=== PATIENT | female | born 1995 | race Hispanic/Latino ===

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

== ENCOUNTER 2017-03-28 16:26 | Emergency (ER) | payer OTHER ==
[~2017-03-28] VITALS: Ht 160 cm; Wt 98.6 kg
[2017-03-28 17:12] VITALS: PULSE 96; RESP 18; O2SAT 96
[2017-03-28 18:03] LABS: BASOPHILS % (AUTO) 0.2 % (0-3); EOSINOPHILS % (AUTO) 0.3 % (0-5); MONOCYTES % (AUTO) 5.2 % (4-12); Mean Corpuscular Hemoglobin 29.1 pg (27.0-35.0); NEUTROPHILS % (AUTO) 60.3 % (40-74); Platelet Count 214 bil/L (150-400)
--- NOTE | 2017-03-28 19:07 | DRSVH ---
PROCEDURE: X-RAY CHEST ONE VIEW, PORTABLE ([id number]) INDICATIONS: shortness of breath TECHNIQUE: One view of the chest was acquired. COMPARISON: None. FINDINGS: Surgical changes and devices: None. Lungs and pleura: No pleural effusions or pneumothorax. Lungs are clear. Mediastinum: Mediastinal contours appear normal. Heart size is normal. Bones and chest wall: No suspicious bony lesions. Overlying soft tissues appear unremarkable. IMPRESSION: No acute pulmonary process. Dictated by: Halle Snyder M.D. on 03/28/2017 at 19:03 Approved by: Halle Snyder M.D. on 03/28/2017 at 19:06
[2017-03-28] MEDS ORDERED: Albuterol-Ipratropium 3 mL Inhalation Solution ONE (20:01)
[2017-03-28 20:05] VITALS: PULSE 96; RESP 17; O2SAT 98
--- NOTE | 2017-03-28 20:09 | ED.REPORT ---
HPI-Dyspnea / Wheezing Date of Service Mar 28, 2017 ED Provider: Rodríguez Hawley MD History of Present Illness: OCC A 22 year old female with a history of asthma and recent pneumonia presents to the ED complaining of dyspnea that began this evening. She has used her albuterol inhaler 7 times today with no relief. The patient has been seen in the ED multiple times for exacerbation that required admission and presents today with identical symptoms. She repots receiving IV infusions for her asthma once per month (possibly Xolair). Last dose 03/18. She endorses chills, a non- productive cough and one episode of hemoptysis. Patient denies any recent fevers , nausea or vomiting. Medication list includes 2.5 mg prednisone (recently decreased from 80) Activair and inhaler. Nursing Notes Stated Complaint: TROUBLE BREATHING, DIZZY Chief Complaint: Respiratory Complaints Nursing Notes Reviewed: Yes (WeGame, Railpods not reconciled) Allergies: Coded Allergies: No Known Allergies (Verified Allergy, Unknown, 03/28/17) Scheduled Fluticasone/Salmeterol (Advair 500-50 Diskus) 1 Each Disk.w.dev 1 PUFF IH BID Montelukast (Montelukast) 10 Mg Tablet 10 MG PO MORNING Prednisone (PredniSONE) 20 Mg Tablet 20 MG PO DAILY Prednisone (PredniSONE) 20 Mg Tablet 40 MG PO DAILY Prednisone (PredniSONE) 20 Mg Tablet 20 MG PO DAILY Scheduled PRN Albuterol Sulfate (Proventil HFA Inhaler) 6.7 Gm Hfa.aer.ad 2 PUFF INH Q4 PRN PRN For Wheezing Albuterol Sulfate (Ventolin HFA Inhaler) 200 Puff/18 Gm Inhaler 1 PUFF INH Q4 PRN PRN For Wheezing General Time Seen by MD: 20:02 Chief Complaint Shortness of breath Hx Obtained From: Patient Arrived By: Walk-in Sudden in Onset?: No Onset Occurred: 5 - 8 hours ago Symptom Duration: Since onset Location: : None Associated with: Reports: Cough, Denies: Fever, Nausea, Vomiting Pertinent Negative: Pt denies other symptoms Recent Healthcare: No recent hospitalization, Recent doctor visit Similar Sx Previous: Yes Past Medical History Past Medical History Notes: PCP: Dr. 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 GI: Denies: Nausea, Vomiting Physical Exam Initial Vital Signs Vital Signs (First) Date Time Temp Pulse Resp B/P Pulse Ox O2 Delivery O2 Flow Rate FiO2 03/28/17 17:12 36.9 96 18 96 Room Air 03/28/17 23:25 136/72 Initial VS: Reviewed, Vital signs normal Head / Eyes: Atraumatic, Normocephalic, PERRL Extremities: Vascular intact, Neuro intact, No swelling, No tenderness Skin: Warm, Dry, No cyanosis Neurologic: Alert, Oriented, Nonfocal Psychiatric: Mood/affect normal, Behavior normal, Normal thought content General/Constitutional: Awake, Alert, No acute distress Neck: Atraumatic, Supple Respiratory / Chest: Atraumatic, No respiratory distress Wheezing / Retractions: Positive: Wheezing mild Cardiovascular: Heart rate NL, Regular rhythm, Heart sounds NL Abdomen: Atraumatic, Soft Interpretation & Diagnostics Lab Results Interpretation Result Diagram: 03/28/17 1753 03/28/17 1753 Test 03/28/17 17:53 03/28/17 19:27 White Blood Count 11.3th/mm3 (3.8-10.1) Red Blood Count 5.05mil/mm3 (3.90-5.20) Hemoglobin 14.7g/dL (12.0-15.6) Hematocrit 41.4% (35.0-46.0) Mean Corpuscular Volume 82.0fL (81-100) Mean Corpuscular Hemoglobin 29.1pg (27.0-35.0) Mean Corpuscular Hemoglobin Concent 35.5% (32.0-37.0) Red Cell Distribution Width 12.7% (12.3-15.4) Platelet Count 214bil/L (150-400) Neutrophils (%) (Auto) 60.3% (40-74) Lymphocytes (%) (Auto) 33.7% (14-46) Monocytes (%) (Auto) 5.2% (4-12) Eosinophils (%) (Auto) 0.3% (0-5) Basophils (%) (Auto) 0.2% (0-3) Sodium Level 137mEq/L (134-144) Potassium Level 3.9mEq/L (3.5-5.2) Chloride Level 100mEq/L (97-108) Carbon Dioxide Level 22mmol/L (18-29) Blood Urea Nitrogen 13mg/dL (6-20) Creatinine 0.70mg/dL (0.57-1.00) Estimat Glomerular Filtration Rate 153mL/min (>59) Glucose Level 95mg/dL (60-99) Calcium Level 9.7mg/dL (8.5-10.1) Total Bilirubin 0.4mg/dL (0.0-1.2) Aspartate Amino Transf (AST/SGOT) 14U/L (0-50) Alanine Aminotransferase (ALT/SGPT) 19U/L (0-32) Alkaline Phosphatase 86U/L (25-150) Total Protein 7.6g/dL (6.4-8.4) Albumin 4.4g/dL (3.4-5.0) Hold Adan Top Tube Received (Received) Hold Urine Received (Received) Lab Results Interpretation: CBC nonspecific leukocytosis CMP normal X-Ray Chest Interpretation Chest Xray Interpretation: IMPRESSION: No acute pulmonary process. Dictated by: Halle Snyder M.D. on 03/28/2017 at 19:03 Interpretation / Wet Read by: Interpret - Radiologist Re-Eval/Medical Decision Med Decision/Clinical Course This is a pleasant 22-year-old female with a history of moderately severe asthma and prior admission, but no prior intubations, was followed by an asthma specialist down at [facility] reports receiving his part of her sick treatment monthly infusions of an unknown suppressive medication. She is also on daily prednisone, currently at 2.5 mg a day. She reports over the past week she has had an exacerbation of asthma, and she has been using her nebulizers at home, symptoms simply recur a few hours after the nebulizer-psoas coming to the ED. Moderately distressed bronchospastic, but did respond markedly to initial presentation milligrams of albuterol. However as she indicated discontinue albuterol, symptoms did recur or further treatment. She also was started on oral dexamethasone at this point he should like to continue her current K platelets Cipro supplement that. Chest x-ray is negative, blood work was negative. Patient received serial courses of albuterol with continued improvement. She did have a couple spells where she would improve, and then have a recurrence of bronchospasm symptoms. Definitive triggers identified. No pneumonia or other overt pathology is evident clinically or radiographically. Ultimately the patient improved enough that she wished to go home, I think this is reasonable. She will she has plenty of her medications at home, she received dexamethasone to continue tomorrow. She will follow-up with her asthma provider. She is comfortable returning if symptoms recur or worsen. And is discharged in good condition. Source of Hx: Old records Re-Evaluation/Progress #1: Time of Eval: 20:16 Patient Status: Condition improved Re-Evaluation/Progress Note: Breathing has improved upon recheck. Re-Evaluation/Progress #2: Time of Eval: 21:32 )( Re-Eval Resp / Chest: Moderate wheezing, Moderate resp distress Re-Evaluation/Progress Note: Wheezing increased from previous recheck. Patient is requesting another breathing treatment at this time. Re-Evaluation/Progress #3: Time of Eval: 22:55 Patient Status: Condition improved Re-Evaluation/Progress Note: Pt feels much better. Discussed plan for discharge. Pt understands and agrees with plan. She reports that she has plenty of Albuterol at home. Differential Diagnosis: Positive: Asthma, Negative: Acute coronary syndrome, Airway obstruction, Carbon monoxide poisoning, Congestive heart failure, Hypertensive emergency, PSVT, Pneumonia, Pneumothorax, Pulmonary embolism, Respiratory failure Counseled Regarding: Diagnosis, Lab results, Need for follow-up, When/why to return to ED Discharge & Departure Impression: Primary Impression: Acute asthma exacerbation Asthma severity: mild persistent Qualified Code: J45.31 - Mild persistent asthma with (acute) exacerbation Disposition: Home Discharge Condition All VS Reviewed: Yes Condition: Improved Patient Instructions: Asthma (ED) Additional Instructions: 1. Continue your current medications. 2. Take the remaining dose of dexamethasone (10mg) tomorrow - simply empty syringe into some juice or soda and drink. 3. Continue your regular prednisone. 4. Return again if new or worsening symptoms. 5. Follow up with your asthma specialist as planned. Referrals: Mirlande Castaneda PA-C (PCP) Scribe Attestation Portions of this note were transcribed by Idalia Levine. I, Dr. Hawley, personally performed the history, physical exam and medical decision-making; I reviewed and confirmed the accuracy of the information in the transcribed note. Signed by: Idalia Levine, 03/28/17. copies to: Mirlande Castaneda PA-C, Matthew F MD Mar 28, 2017 20:08 IDALIA LEVINE Mar 28, 2017 20:20 JOON IBANEZ Mar 28, 2017 22:56
[2017-03-28] MEDS ORDERED: Dexamethasone 20 mg/2 mL Oral Solution PO ONE (20:20)
[2017-03-28] MEDS ORDERED: Albuterol 2.5 mg/3 mL Inhalation Solution NEB ONE (21:30)
[2017-03-28 21:35] VITALS: PULSE 94; RESP 18; O2SAT 97
[2017-03-28 23:25] VITALS: BP 136/72; PULSE 100; RESP 18; O2SAT 97
== END 2017-03-28 23:26 | disposition home or self-care (01) ==
LOC: SED 16:26
DX: J45.31 Mild persistent asthma with (acute) exacerbation (principal); K21.9 Gastro-esophageal reflux disease without esophagitis
CPT/HCPCS: 36415; 71010; 80053; 85025; 94644; 99284; J7613; J7620

== ENCOUNTER 2017-04-13 08:51 | Emergency (ER) | payer OTHER ==
[~2017-04-13] VITALS: Ht 160 cm; Wt 97.7 kg
[2017-04-13 08:57] VITALS: BP 146/85; PULSE 91; RESP 20; O2SAT 97
--- NOTE | 2017-04-13 09:03 | ED.REPORT ---
HPI-Dyspnea / Wheezing Date of Service Apr 13, 2017 ED Provider: Dr. Pride The pt is a 22 y/o female with a hx of asthma and recent pneumonia who presents to the ED complaining of worsening shortness of breath, onset 5 days ago. Associated sx include chest tightness, back pain, sore throat, some nasal congestion, and subjective fever. The pt was seen at the ED 2 weeks ago for the same complaint. At that time, her chest X-ray and blood work was negative. Her condition had improved with serial courses of albuterol. The pt is being followed by Dr. Rodríguez Jaffe at . Nursing Notes Stated Complaint: TROUBLE BREATHING Chief Complaint: Respiratory Distress Nursing Notes Reviewed: Yes Allergies: Coded Allergies: No Known Allergies (Verified Allergy, Unknown, 03/28/17) Scheduled Fluticasone/Salmeterol (Advair 500-50 Diskus) 1 Each Disk.w.dev 1 PUFF IH BID Montelukast (Montelukast) 10 Mg Tablet 10 MG PO MORNING Prednisone (PredniSONE) 20 Mg Tablet 20 MG PO DAILY Prednisone (PredniSONE) 20 Mg Tablet 40 MG PO DAILY Prednisone (PredniSONE) 20 Mg Tablet 20 MG PO DAILY Scheduled PRN Albuterol Sulfate (Proventil HFA Inhaler) 6.7 Gm Hfa.aer.ad 2 PUFF INH Q4 PRN PRN For Wheezing Albuterol Sulfate (Ventolin HFA Inhaler) 200 Puff/18 Gm Inhaler 1 PUFF INH Q4 PRN PRN For Wheezing General Time Seen by MD: 09:09 Chief Complaint Shortness of breath Hx Obtained From: Patient Arrived By: Walk-in Sudden in Onset?: No Onset Occurred: 5 days ago Symptom Duration: Since onset Severity: Current: No pain currently Severity: Maximum: No pain Recent Healthcare: Recent doctor visit Similar Sx Previous: Yes Past Medical History Past Medical History Notes: PCP: Dr. Wright Seen in ED 11/18/15 for Asthma, Xray Negative at that visit, ~9-10 ED visits for Asthma over past ~[address] Chest negative 09/201508/12/2016 chronic uncontrolled asthma Past Medical History Allergies Asthma previously requiring admission Pneumonia Reports: Asthma, GERD Past Surgical History Reports: Appendectomy Family History Noncontributory Smoking History Never Smoker Social History No tobacco exposure at home Alcohol Use: Denies alcohol use Drug Use: Denies drug use Other Social History: Good social support, Lives with parents, Local resident Occupation goes to college 08/12/2016 Ambulatory Status Independent Review of Systems Reports: chest tightness Constitutional: Reports: Fever (subjective) Ears / Nose / Throat: Reports: Nasal congestion, Sore throat Respiratory: Reports: Shortness of breath Musculoskeletal: Reports: Back pain Complete sys rev & neg: except as marked. Physical Exam Initial Vital Signs Vital Signs (First) Date Time Temp Pulse Resp B/P Pulse Ox O2 Delivery O2 Flow Rate FiO2 04/13/17 08:57 36.6 91 20 146/85 97 Room Air Initial VS: Reviewed Head / Eyes: Atraumatic, Normocephalic Abdomen / GI: Soft, Non-tender, No guarding, No rebound, No distention Extremities: Vascular intact, Neuro intact, No swelling, No tenderness Skin: Warm, Dry, No cyanosis Neurologic: Alert, Oriented, Nonfocal General/Constitutional: Awake, Alert, No acute distress, Well appearing, Well hydrated, Well nourished, Cooperative Neck: Atraumatic, Supple, Full range of motion Respiratory / Chest: Atraumatic, Breath sounds NL, Breath sounds = bilat, No respiratory distress, No rales, No rhonchi, No wheezing, No retractions Cardiovascular: Heart rate NL, Regular rhythm, Heart sounds NL, No gallop, No murmurs, No rubs Re-Eval/Medical Decision Source of Hx: Old records Re-Evaluation/Progress : Time of Eval: 14:21 Re-Evaluation/Progress Note: Rechecked pt. Discussed diagnosis and plan to discharge. Pt understands and agrees with the plan. F/U instruction and RTER warning given. All questions addressed. Consultation : Call Returned at: 14:17 Animal Nutrition Teacher: Will see in office, Agrees with eval, Agrees with plan Note: Talked to Dr. Addy Rosales who is cushion padder for Dr. Jaffe. She recommends either not doing anything or taking 40 mg of prednisone if sx don't improve and then going immediately back to the 2.5 mg dose. She recommends follow up. Counseled Regarding: Diagnosis, Need for follow-up, When/why to return to ED Discharge & Departure Impression: Primary Impression: Acute asthma exacerbation Asthma severity: unspecified severity Qualified Code: J45.901 - Unspecified asthma with (acute) exacerbation Disposition: Home Discharge Condition All VS Reviewed: Yes Condition: Stable Patient Instructions: Asthma (ED) Additional Instructions: After speaking with Dr. Rosales who is taking call for Dr. Jaffe, we recommend that you either do nothing different with your medications and see if over the next few days your symptoms will improve or to take 40 mg of prednisone once daily for 3 or 4 days and then go immediately back to the 2.5 mg you were on previously. Of course if you are feeling worse, please return to the emergency department or call Dr. Jaffe. Follow-up with Dr. Jaffe next week. Referrals: Mirlande Castaneda PA-C (PCP) Scribe Attestation Portions of this note were transcribed by Grazyna Andrew. I,, personally performed the history,physical exam and medical decision-making;I reviewed and confirmed the accuracy of the information in the transcribed note. Signed by Lincoln Ibarra. 04/13/17 copies to: Mirlande Castaneda PA-C, Kirk H MD Apr 13, 2017 09:03 Grazyna Andrew Apr 13, 2017 09:10
[2017-04-13 11:10] VITALS: BP 106/78; PULSE 77; RESP 22; O2SAT 97
[2017-04-13 14:35] VITALS: BP 106/78; PULSE 77; RESP 22; O2SAT 97
== END 2017-04-13 14:29 | disposition home or self-care (01) ==
LOC: SED 08:51
DX: J45.901 Unspecified asthma with (acute) exacerbation (principal); M54.9 Dorsalgia, unspecified; R50.9 Fever, unspecified; K21.9 Gastro-esophageal reflux disease without esophagitis; Z87.01 Personal history of pneumonia (recurrent); Z90.89 Acquired absence of other organs

== ENCOUNTER 2017-04-14 07:16 | Observation (INO) | payer OTHER ==
[~2017-04-14] VITALS: Ht 160 cm; Wt 97.7 kg
[2017-04-14] VITALS (20 sets, daily range): BP systolic 121–132; BP diastolic 68–79; PULSE 109–155; RESP 17–30; O2SAT 90–98
--- NOTE | 2017-04-14 07:29 | ED.REPORT ---
HPI-Dyspnea / Wheezing Date of Service Apr 14, 2017 ED Provider: Anna Pandya Patient is a 22 year old female with a hx of asthma who presents to the ED complaining of gradually worsening SOB onset yesterday. Pt complains of sore throat and rhinnorhea for the last month. Associated symptoms include chills, pleuritic pain, and back pain. She describes her pain as tightness with sharp twinges with inspiration. Pt denies leg swelling, fevers, or any other symptoms. She was seen yesterday when her symptoms are less severe. Her doctor at said she may be given a bolus dose of steroids as she is already on a maintenance dose of Prednisone. She did increase her prednisone dose this morning. Pt also reports a resolving pneumonia but is no longer on abx. Her last home Nebulizer was around 0430 or 0500 this morning. Nursing Notes Stated Complaint: DIFFICULTY BREATHING Chief Complaint: Respiratory Distress Nursing Notes Reviewed: Yes Allergies: Coded Allergies: No Known Allergies (Verified Allergy, Unknown, 03/28/17) Scheduled Fluticasone/Salmeterol (Advair 500-50 Diskus) 1 Each Disk.w.dev 1 PUFF IH BID Montelukast (Montelukast) 10 Mg Tablet 10 MG PO MORNING Prednisone (PredniSONE) 20 Mg Tablet 20 MG PO DAILY Prednisone (PredniSONE) 20 Mg Tablet 40 MG PO DAILY Prednisone (PredniSONE) 20 Mg Tablet 20 MG PO DAILY Scheduled PRN Albuterol Sulfate (Proventil HFA Inhaler) 6.7 Gm Hfa.aer.ad 2 PUFF INH Q4 PRN PRN For Wheezing Albuterol Sulfate (Ventolin HFA Inhaler) 200 Puff/18 Gm Inhaler 1 PUFF INH Q4 PRN PRN For Wheezing General Time Seen by MD: 07:29 Chief Complaint Shortness of breath Hx Obtained From: Patient Arrived By: Walk-in Sudden in Onset?: No Onset Occurred: Yesterday Symptom Duration: Since onset Location: : Back: Substernal Quality: Sharp (and tight ) Exacerbated by: Deep breath Context Asthma History: Asthma diagnosed Recent Healthcare: Recent doctor visit Similar Sx Previous: Yes Past Medical History Past Medical History Notes: PCP: Dr. Wright 08/12/2016 chronic uncontrolled asthma Past Medical History Allergies Asthma previously requiring admission Pneumonia Reports: GERD Past Surgical History Reports: Appendectomy Family History Noncontributory Smoking History Never Smoker Social History No tobacco exposure at home Alcohol Use: Denies alcohol use Drug Use: Denies drug use Other Social History: Good social support, Lives with parents, Local resident Occupation goes to college 08/12/2016 Ambulatory Status Independent Review of Systems Constitutional: Reports: Chills, Denies: Fever Ears / Nose / Throat: Reports: Sore throat Respiratory: Reports: Pleuritic pain, Shortness of breath Cardiovascular: Denies: Edema Musculoskeletal: Reports: Back pain, Denies: Extremity swelling Allergy / Immune: Reports: Rhinorrhea Complete sys rev & neg: except as marked. Physical Exam Initial Vital Signs Vital Signs (First) Date Time Temp Pulse Resp B/P Pulse Ox O2 Delivery O2 Flow Rate FiO2 04/14/17 07:17 36.6 145 20 130/72 93 Room Air 04/14/17 07:56 8 Initial VS: Reviewed, Vital signs abnormal Head / Eyes: Atraumatic, Normocephalic Abdomen / GI: Soft, Non-tender Skin: Warm, Dry Neurologic: Alert, Oriented, Nonfocal Psychiatric: Mood/affect normal, Behavior normal, Normal thought content General/Constitutional: Awake, Alert Neck: Atraumatic Respiratory / Chest: Atraumatic Expiratory rhonchi and wheezes Speaking in full sentences No obvious respiratory distress Cardiovascular: Regular rhythm, Heart sounds NL Heart Rate / Rhythm: Positive: Tachycardia Lower Extremity / Pelvis / MS: No edema Interpretation & Diagnostics Lab Results Interpretation Result Diagram: 04/14/17 0736 04/14/17 0736 Test 04/14/17 07:36 White Blood Count 12.4th/mm3 (3.8-10.1) Red Blood Count 5.26mil/mm3 (3.90-5.20) Hemoglobin 15.1g/dL (12.0-15.6) Hematocrit 43.0% (35.0-46.0) Mean Corpuscular Volume 81.7fL (81-100) Mean Corpuscular Hemoglobin 28.7pg (27.0-35.0) Mean Corpuscular Hemoglobin Concent 35.1% (32.0-37.0) Red Cell Distribution Width 12.7% (12.3-15.4) Platelet Count 193bil/L (150-400) Neutrophils (%) (Auto) 84.3% (40-74) Lymphocytes (%) (Auto) 10.1% (14-46) Monocytes (%) (Auto) 5.2% (4-12) Eosinophils (%) (Auto) 0.1% (0-5) Basophils (%) (Auto) 0.1% (0-3) Sodium Level 137mEq/L (134-144) Potassium Level 3.8mEq/L (3.5-5.2) Chloride Level 103mEq/L (97-108) Carbon Dioxide Level 19mmol/L (18-29) Blood Urea Nitrogen 10mg/dL (6-20) Creatinine 0.57mg/dL (0.57-1.00) Estimat Glomerular Filtration Rate 194mL/min (>59) Glucose Level 113mg/dL (60-99) Calcium Level 9.5mg/dL (8.5-10.1) Magnesium Level 1.9mg/dL (1.6-2.6) Hold Adan Top Tube Received (Received) X-Ray Chest Interpretation Chest Xray Interpretation: IMPRESSION: No acute disease Dictated by: Reji Ng M.D. on 04/14/2017 at 8:49 Approved by: Reji Ng M.D. on 04/14/2017 at 8:50 View: Portable, 1 view Interpretation / Wet Read by: Interpret - Radiologist Re-Eval/Medical Decision Med Decision/Clinical Course The patient presents with breathing difficulty although she is talking in full sentences. While sleeping her sats dropped to 90% and she is persistently tachycardic. Initially I thought she could be dehydrated as well as having effects from her albuterol. She was watched for 4 hours and did not have any change in her heart rate. The patient was feeling minimally improved. Given her persistent tachycardia and leukocytosis she was admitted for ongoing treatment. A partial list of differential diagnoses considered were pneumonia, dehydration , upper respiratory infection, and asthma exacerbation. Re-Evaluation/Progress #1: Time of Eval: 09:06 Re-Evaluation/Progress Note: Rechecked pt who reports she is still feeling about the same. Pt appears to have decreased work with breathing. She also complains of a sore throat. Re-Evaluation/Progress #2: Time of Eval: 09:46 Re-Evaluation/Progress Note: Rechecked pt. Her HR is now lower. Consultation : Referral / Consult Name: Cam Perkins MD Consulted With: Hospitalist Call Returned at: 12:15 Optical Instrument Inspector: Will see patient, Agrees with eval, Agrees with plan, Accepts admit Note: Discussed pt's case. Accepts admit. Counseled Regarding: Diagnosis, Lab results, Need for admission Discharge & Departure Impression: Primary Impression: Asthma exacerbation Additional Impression: SIRS (systemic inflammatory response syndrome) Disposition: ADMITTED TO HOSPITAL Discharge Condition All VS Reviewed: Yes Condition: Stable Referrals: Mirlande Castaneda PA-C (PCP) Lynnetteibjonathan Attestation Portions of this note were transcribed by Liyah Ly. I, Dr. Pandya personally performed the history, physical exam and medical decision-making; I reviewed and confirmed the accuracy of the information in the transcribed note. Signed by: Lincoln Meza, 04/14/17 copies to: Mirlande Castaneda PA-C, Jena M MD Apr 14, 2017 07:29 LIYAH LY Apr 14, 2017 07:39
[2017-04-14] MEDS ORDERED: Magnesium Sulf 2 Gm/50mL Water 2 GM in IV Premix 1 EACH IV ONE (07:30)
[2017-04-14] MEDS ORDERED: Albuterol-Ipratropium 3 mL Inhalation Solution NEB ONE (07:30)
[2017-04-14] MEDS ORDERED: Budesonide 0.5 mg/2 mL Inhalation Solution NEB ONE (07:30)
[2017-04-14] MEDS ORDERED: 0.9% Sodium Chloride 1,000 ML IV ONE ×2 (07:30→09:00)
[2017-04-14] MEDS ORDERED: MethylprednisoLONE Sodium Succinate 62.5 mg/mL 2 mL Inj IVPUSH ONE (07:30)
[2017-04-14] MEDS ORDERED: Albuterol 2.5 mg/3 mL Inhalation Solution NEB ONE ×3 (07:30→12:15)
[2017-04-14 07:54] LABS: BASOPHILS % (AUTO) 0.1 % (0-3); EOSINOPHILS % (AUTO) 0.1 % (0-5); MONOCYTES % (AUTO) 5.2 % (4-12); Mean Corpuscular Hemoglobin 28.7 pg (27.0-35.0); Mean Corpuscular Volume 81.7 fL (81-100); NEUTROPHILS % (AUTO) 84.3 % (40-74); Platelet Count 193 bil/L (150-400)
[2017-04-14 08:27] LABS: Magnesium 1.9 mg/dL (1.6-2.6)
--- NOTE | 2017-04-14 08:52 | DRSVH ---
PROCEDURE: X-RAY CHEST ONE VIEW, PORTABLE ([id number]) INDICATIONS: short of breath TECHNIQUE: One view of the chest was acquired. COMPARISON: [facility], CR, XR CHEST 1VW (PORTABLE), 03/28/2017, 18:37. FINDINGS: Surgical changes and devices: None. Lungs and pleura: No pleural effusions or pneumothorax. Lungs are clear. Decreased lung volumes. Mediastinum: Mediastinal contours appear normal. Heart size is normal. Bones and chest wall: No suspicious bony lesions. Overlying soft tissues appear unremarkable. IMPRESSION: No acute disease Dictated by: Reji Ng M.D. on 04/14/2017 at 8:49 Approved by: Reji Ng M.D. on 04/14/2017 at 8:50
[2017-04-14] MEDS ORDERED: Albuterol 2.5 mg/3 mL Inhalation Solution NEB PRN (13:00)
[2017-04-14] MEDS ORDERED: Ondansetron 2 mg/mL 2 mL Inj IVPUSH PRN (13:00)
[2017-04-14] MEDS ORDERED: Alum-Mag Hydrox-Simeth 30 mL Suspension PO PRN (13:00)
[2017-04-14] MEDS ORDERED: Polyethylene Glycol (PEG) 17 Gm Powder PO PRN (13:00)
--- NOTE | 2017-04-14 13:04 | PCM.HPMED ---
Subjective Date of Service Apr 14, 2017 Primary Provider: Admitting Physician: Cam Perkins MD Primary Care Physician: Mirlande Castaneda PA-C Attending Physician: Cam Perkins MD Allergies Coded Allergies: No Known Allergies (Verified Allergy, Unknown, 03/28/17) PMH Social History Hx Alcohol Use: No Hx Substance Use: No Hx Tobacco Use: No Smoking Status: Never Smoker Exam Vital Signs Vital Sign - Last Date Time Temp Pulse Resp B/P Pulse Ox O2 Delivery O2 Flow Rate FiO2 04/14/17 12:08 145 20 96 8 04/14/17 11:55 Nasal Cannula 04/14/17 08:24 132/68 04/14/17 07:17 36.6 Lab and Diagnostics Result Diagram: 04/14/17 0736 04/14/17 0736 Cam Perkins MD Apr 14, 2017 13:04
[2017-04-14] MEDS: Dextrose 5% 0.45% NaCl 1,000 ML IV SCH (13:18)
--- NOTE | 2017-04-14 15:14 | PCM.HPMED ---
Subjective Date of Service Apr 14, 2017 Primary Provider: Admitting Physician: Cam Perkins MD Primary Care Physician: Mirlande Castaneda PA-C Attending Physician: Cam Perkins MD Chief Complaint: Shortness of breath History of Present Illness: This is a 22 year old female with a past medical history of asthma, being followed by her doctors at , on by mouth prednisone, montelukast presented to the emergency department with shortness of breath. Patient was diagnosed with acute respiratory failure, secondary to asthma exacerbation. Patient's symptoms were not under control after respiratory therapy and IV steroids ED physician discussed with the patient to the hospital to continue treatment. Now patient is complaining of tightness in her chest, subjective shortness of breath. Otherwise she looks comfortable. Review of Systems: REVIEW OF SYSTEMS: GENERAL: no malaise, no fevers., SEE HPI HEENT: Negative for frequent or significant headaches All other reviewed and negative other than HPI. Allergies Coded Allergies: No Known Allergies (Verified Allergy, Unknown, 03/28/17) PMH Asthma Surgical History none Family History Hypertension Social History Hx Alcohol Use: No Hx Substance Use: No Hx Tobacco Use: No Smoking Status: Never Smoker Exam Vital Signs Vital Sign - Last Date Time Temp Pulse Resp B/P Pulse Ox O2 Delivery O2 Flow Rate FiO2 04/14/17 14:05 Supplement Oxygen 04/14/17 13:50 36.8 134 22 126/79 94 2.00 Exam GENERAL: Alert, not in distress, cooperative HEAD: atraumatic, normocephalic, no bruises. EYES: ABA, EOMI, anicteric, able to fully open and close eyelids SKIN: Skin color normal, turgor normal. No visible rashes or lesions. EAR, NOSE, MOUTH, THROAT: Lips, oral mucosa, tongue gums, oropharynx are moist , pink, no lesions. Ears normal appearance, no lesions. NECK: no jugulovenous distention; supple ROM normal. RESPIRATORY: Lungs clear to auscultation, occasional wheezing present bilaterally. Good diaphragmatic excursion. CARDIAC: normal S1 and S2; no rubs, murmurs, or gallops; regular rate and rhythm ABDOMEN: Abdomen soft, non-tender. BS normal. No masses or organomegaly. MUSCULOSKELETAL: ROM full, muscles are not tender EXTREMITIES: no pitting edema in LE, no new deformities or skin discoloration. NEURO: Alert, oriented X , Sensation grossly intact., Cranial nerves II- XII intact, Grossly normal motor function. PULSES: 2+ radial, 2+ carotid Lab and Diagnostics Result Diagram: 04/14/1736 04/14/1736 Assessment & Plan 22-year-old female with a history of asthma presented to the hospital with shortness of breath and wheezing Acute on chronic respiratory failure secondary to asthma exacerbation. SIRS - Improving - Personally reviewed chest x-ray, significant for clear lungs and normal heart Plan - Continue with respiratory therapy, oxygen, steroids - Monitor on telemetry DVT PROPHYLAXIS: Ambulation Code status: Full code Disposition: discharge after patient improves. Plan of care discussed with ED physician; Labs, radiology tests, reviewed. Plan of care, medication side effects, home medication, diagnostic procedures and available alternatives were discussed and reviewed with patient/family . All questions answered. Patient/family verbalized understanding, approved and agreed to plan of care. Cam Perkins MD Apr 14, 2017 15:13
[2017-04-14] MEDS: Fluticasone-Salmeterol 500-50 Inhaler INHALATION SCH ×2 (15:57→20:50)
[2017-04-14] MEDS: Albuterol 2.5 mg/3 mL Inhalation Solution NEB SCH ×2 (16:58→21:54)
[2017-04-14] MEDS: predniSONE 20 mg Tablet PO SCH (17:13)
--- NOTE | 2017-04-14 17:19 | NUR ---
Social Work: Initial Assessment Data: See initial assessment. Patient is a 22 year old female who was admitted on 04/14/17 for asthma exacerbation and SIRS per H&P. Patient's insurance is [employer] and her PCP is Mirlande Castaneda PA-C. EMR reviewed. SW met with patient to discuss discharge planning. SW role explained. Patient resides at home with her parents in [place]. Patient is I at baseline and is able to perform all of her ADLs and care needs. Patient considers her parents to be her main source of support. Patient denies having a DPOA or AD and has declined SW offer for resources at this time. Patient denies having a hx of home health services or SNF. Patient denies having terminologist care insurance or VA benefits. Upon discharge, patient will return home with parents. Transportation will be provided by parents. SW provided patient with a discharge planning checklist booklet and encouraged patient to call with any questions or concerns. Phone number provided. SW will continue to follow for needs. Assessment: Patient will return home with parents when medically stable for discharge. Plan: Patient will return home with parents when medically stable for discharge. Transportation will be provided by parents. SW will continue to follow for needs. JEMMA Velazquez Addendum: 04/14/17 at 1725 by THAO PATTON Amended: Links added.
--- NOTE | 2017-04-14 17:34 | NUR ---
Shift Note: Patient received from ED approximately 1400. Patient RR in the low 20's, consistent throughout the remainder of the shift. Saturating mid-90's on 2L NC. Complains of sore throat pain, back and upper chest pain. 01/24. Acetaminophen given to some relief of pain. Patient resting comfortably in bed, eating food brought in by family. Does not appear in any acute distress at this time. Did state that she is coughing up yellowish sputum. Request for sputum sample order per it to Dr. Perkins at [phone].
[2017-04-15] VITALS (10 sets, daily range): BP systolic 109–121; BP diastolic 56–68; PULSE 76–117; RESP 16–20; O2SAT 94–98
[2017-04-15] MEDS: Dextrose 5% 0.45% NaCl 1,000 ML IV SCH ×2 (00:33→09:18)
[2017-04-15] MEDS: Albuterol 2.5 mg/3 mL Inhalation Solution NEB SCH ×4 (00:59→13:01)
--- NOTE | 2017-04-15 05:42 | NUR ---
Stable Patient continues to be stable. No SOB, difficulty breathing or chest pain. Medication compliant. VSS with tachycardia. Remains on O2 2L via N/C with sats in the mid to upper 90's. Receiving breathing Tx from RT Q4 during this shift.WCTM
[2017-04-15] MEDS: Fluticasone-Salmeterol 500-50 Inhaler INHALATION SCH (08:27)
[2017-04-15] MEDS: predniSONE 20 mg Tablet PO SCH (08:28)
--- NOTE | 2017-04-15 13:37 | PCM.DIMED ---
Discharge Instructions Date of Service Apr 15, 2017 Dates of Hospitalization Apr 14, 2017 at 12:27 Discharge Diagnosis Discharge Diagnosis Acute respiratory failure, Asthma exacerbation Diet Discharge Diet: Low fat, Low Sodium, Heart Healthy Activity Discharge Activity: Other (Avoid heavy physical work or exertion ) Call your provider Call your provider for: Fever or Chills, Shortness of breath, Bleeding, Chest pain, Vomitting, Weakness (unilateral) Patient Instructions Patient Instructions Follow up with your PCP and Acute Dialysis Nurse for further management of your Asthma. Follow-up with PCP in: Other (2-3 days after discharge ) Cam Perkins MD Apr 15, 2017 13:36
[2017-04-15] MEDS ORDERED: PRE10 PO (13:45)
[2017-04-15] MEDS ORDERED: PRD2.5T PO ×2 (13:45→13:48)
--- NOTE | 2017-04-15 14:07 | NUR ---
Discharge Patient discharged to home with Mom. All discharge instructions, new prescription, home care of asthma discussed. Patient feeling ready to leave and no questions at this time.
--- NOTE | 2017-04-15 14:11 | PCM.DC.MED ---
Discharge Summary Date of Service Apr 15, 2017 Dates of Hospitalization Date of Hospital Admission Apr 14, 2017 at 12:27 Date of Discharge: Apr 15, 2017 Providers: Admitting Physician: Cam Perkins MD Primary Care Physician: Mirlande Castaneda PA-C Attending Physician: Cam Perkins MD Diagnosis at Time of Discharge Diagnosis at Time of Discharge Acute respiratory failure, Asthma exacerbation Procedures XRay, CTs & MRIs PROCEDURE: X-RAY CHEST ONE VIEW, PORTABLE ([id number]) INDICATIONS: short of breath TECHNIQUE: One view of the chest was acquired. COMPARISON: [facility], CR, XR CHEST 1VW (PORTABLE), 03/28/2017, 18 :37. FINDINGS: Surgical changes and devices: None. Lungs and pleura: No pleural effusions or pneumothorax. Lungs are clear. Decreased lung volumes. Mediastinum: Mediastinal contours appear normal. Heart size is normal. Bones and chest wall: No suspicious bony lesions. Overlying soft tissues appear unremarkable. IMPRESSION: No acute disease Hospital Course This is a 22 year old female with a past medical history of asthma, being followed by her doctors at , on by mouth prednisone, montelukast presented to the emergency department with shortness of breath. Patient was diagnosed with acute respiratory failure, secondary to asthma exacerbation. Patient's symptoms were not under control after respiratory therapy and IV steroids ED physician asked to observe the patient in the hospital to continue treatment. Patient was treated with RT, O2, Steroids. Next day she improved. Richard was seen and examined on the day of discharge. After patient improved she was discharged home with recommendation to follow up with her PCP and [facility] for further management of her medical problems. Patient Condition @ Discharge: good Discharge Disposition: home Discharge Activity: resume regular activity, patient was advised to avoid heavy physical work or exertion Discharge Diet: regular diet, heart healthy, low fat, low salt, high fiber Information Provided to Patient: information about discharge medications Discharge Medications: I discussed with patient medication dosage, usage, goals of therapy, side effects, alternatives. During discharge patient was alert, oriented, able to make own informed decisions. We discussed possible severe side effects, adverse reactions, benefits, risks, alternatives of current and newly prescribed medications and diagnostic procedures. Patient verbalized understanding and agreed to current plan of care and discharge. TIME SPENT IN DISCHARGE ACTIVITY: activity greater then 30 minutes spent in discharge activity. 1. Discussed with patient re: discharge plan of care/treatment, and follow up care/services. 2. Patient agreed with discharge plan and further plan of care, all questions were answered/addressed, no further questions at the time of discharge. Exam Vital Signs (Last) Date Time Temp Pulse Resp B/P Pulse Ox O2 Delivery O2 Flow Rate FiO2 04/15/17 13:03 117 16 95 Room Air 04/15/17 12:16 37.1 121/68 04/15/17 09:22 2.00 Test 04/14/17 07:36 04/14/17 12:55 White Blood Count 12.4th/mm3 (3.8-10.1) Red Blood Count 5.26mil/mm3 (3.90-5.20) Hemoglobin 15.1g/dL (12.0-15.6) Hematocrit 43.0% (35.0-46.0) Mean Corpuscular Volume 81.7fL (81-100) Mean Corpuscular Hemoglobin 28.7pg (27.0-35.0) Mean Corpuscular Hemoglobin Concent 35.1% (32.0-37.0) Red Cell Distribution Width 12.7% (12.3-15.4) Platelet Count 193bil/L (150-400) Neutrophils (%) (Auto) 84.3% (40-74) Lymphocytes (%) (Auto) 10.1% (14-46) Monocytes (%) (Auto) 5.2% (4-12) Eosinophils (%) (Auto) 0.1% (0-5) Basophils (%) (Auto) 0.1% (0-3) Sodium Level 137mEq/L (134-144) Potassium Level 3.8mEq/L (3.5-5.2) Chloride Level 103mEq/L (97-108) Carbon Dioxide Level 19mmol/L (18-29) Blood Urea Nitrogen 10mg/dL (6-20) Creatinine 0.57mg/dL (0.57-1.00) Estimat Glomerular Filtration Rate 194mL/min (>59) Glucose Level 113mg/dL (60-99) Calcium Level 9.5mg/dL (8.5-10.1) Magnesium Level 1.9mg/dL (1.6-2.6) Hold Adan Top Tube Received (Received) Hold Urine Received (Received) Discharge Medications Discharge Medications Fluticasone/Salmeterol (Advair 500-50 Diskus) 1 Each Disk.w.dev 1 PUFF IH BID ( Reported) Montelukast (Montelukast) 10 Mg Tablet 10 MG PO MORNING (Reported) Prednisone (PredniSONE) 10 Mg Tablet 10 MG PO DAILY Prescribed by: MELODY SKINNER MD Prednisone (PredniSONE) 2.5 Mg Tab 2.5 MG PO DAILY Prescribed by: MELODY SKINNER MD As needed Albuterol Sulfate (Proventil HFA Inhaler) 6.7 Gm Hfa.aer.ad 2 PUFF INH Q4 PRN PRN For Wheezing Prescribed by: YAMIL SON MD Albuterol Sulfate (Ventolin HFA Inhaler) 200 Puff/18 Gm Inhaler 1 PUFF INH Q4 PRN PRN For Wheezing (Reported) Followup Plan Discharge Diet: Low fat, Low Sodium, Heart Healthy Discharge Activity: Other (Avoid heavy physical work or exertion ) Patient Instructions Follow up with your PCP and [facility] for further management of your Asthma. Follow-up with PCP in: Other (2-3 days after discharge ) Cam Perkins MD Apr 15, 2017 14:10 Cam Perkins MD Apr 15, 2017 14:10
== END 2017-04-15 14:05 | disposition home or self-care (01) ==
LOC: SED 07:16 → INTOOBSV 12:27 → MOC 12:27
PROVIDERS: ADMIT Internal Medicine; ATTEND Internal Medicine
DX: J96.20 Acute and chronic respiratory failure, unspecified whether with hypoxia or hypercapnia (principal); J45.901 Unspecified asthma with (acute) exacerbation; R65.10 Systemic inflammatory response syndrome (SIRS) of non-infectious origin without acute organ dysfunction; K21.9 Gastro-esophageal reflux disease without esophagitis; Z79.51 Long term (current) use of inhaled steroids; Z79.52 Long term (current) use of systemic steroids
CPT/HCPCS: 36415; 71010; 80048; 83735; 85025; 94640; 94664; 96374; 96375; 96376; 99285; G0378; J2060; J2930; J7030; J7042; J7613; J7620